=== PATIENT | female | born 1970 | race Two or more races ===

== ENCOUNTER → 2017-06-15 | Day surgery (SDC) | payer OTHER ==
[2017-06-15] VITALS (8 sets, daily range): BP systolic 116–148; BP diastolic 72–82
[~2017-06-15] VITALS: Ht 170.2 cm; Wt 136.1 kg
[~2017-06-15] MED LIST: AMLODIPINE BESY10 MG ORAL; Bupivacaine 0.25% Inj 30ml INJ ONE; CITALOPRAM HBR10 M1 ORAL; Clindamycin 600mg 50 ML IV ONE; D5 1/2NS 1,000 ML IV SCH; FLONASE ALLERG9.9 ML NS; FUROSEMIDE40 MG ORAL; HYDROmorphone 1mg/ml Carpuject SUBQ PRN; LORATADINE10 M1 PO; LR 1000ml ONE; NS Irrig 1000ml IRRIG ONE; Norco 5mg/325mg tab ORAL PRN; Propofol 10mg/ml 20ml IV ONE; RISPERDAL0.25 MG ORAL; Sterile Water Irrig 1000ml IRRIG ONE; Tylenol #3 tab (300mg/30mg) ORAL PRN; XANAX0.25 MG ORAL; celeBREX 200mg Cap **SURGERY PATIENTS ONLY ORAL ONE; fentaNYL 100 mcg/2 mL IV ONE; oxyCONTIN 20mg tab ORAL ONE
--- NOTE | 2017-06-15 07:16 | Pre-Procedure Note/Attestation ---
Pre-Procedure Note/Attestation Complete Prior to Procedure Planned Procedure: right Procedure Narrative: ct release Indications for Procedure Pre-Operative Diagnosis: right CTS Attestation I attest that I discussed the nature of the procedure; its benefits; risks and complications; and alternatives (and the risks and benefits of such alternatives ), prior to the procedure, with the patient (or the patient's legal freight representative). I attest that, if there was a reasonable possibility of needing a blood transfusion, the patient (or the patient's legal freight representative) was given the [facility] standardized written summary, pursuant to the [place] Blood Safety Act ([place] Health and Safety Code # 1645, as amended). I attest that I re-evaluated the patient just prior to the surgery and that there has been no change in the patient's H&P, except as documented below: ANATOLIY LOW Jun 15, 2017 07:16
--- NOTE | 2017-06-15 07:17 | Operative Note - PDOC ---
Operative Note Operative Note Pre-op Diagnosis: right CTS Procedure: right carpel tunnel release Post-op Diagnosis: same as pre-op plus Operative Findings: consistent w/pre-op dx studies Anesthesia: MAC Specimen: none Complications: none Condition: stable Estimated Blood Loss: none Implant(s) used?: ANATOLIY Santiago Jun 15, 2017 07:17
--- NOTE | 2017-06-15 11:10 | Immediate Post-Op Evaluation ---
Immediate Post-Op Evalulation Immediate Post-Op Evalulation Procedure: r CTR Date of Evaluation: Jun 15, 2017 Time of Evaluation: 11:10 Nausea: No Vomiting: No Given Within 1 Hr of Incision: Yes Zoya Banda MD Jun 15, 2017 11:10
--- NOTE | 2017-06-15 11:10 | Anethesia Preoperative Eval ---
Anesthesia Pre-op PMH/ROS General Date of Evaluation: Jun 15, 2017 Time of Evaluation: 10:00 ASA Score: ASA 2 Mallampati Score Class I : Soft palate, uvula, fauces, pillars visible Class II: Soft palate, uvula, fauces visible Class III: Soft palate, base of uvula visible Class IV: Only hard plate visible Mallampati Classification: Class II Allergies: Coded Allergies: LATEX (Verified Allergy, Intermediate, 06/14/17) SKIN RASH AND ITCHING PENICILLINS (Verified Allergy, Unknown, 06/14/17) Uncoded Allergies: ADHESIVE (Allergy, Severe, 06/14/17) SKIN IRRITATION AND BLISTERS Anesthesia Pre-op Phys. Exam Physician Exam Last Vital Signs Date Time Temp Pulse Resp B/P Pulse Ox O2 Delivery O2 Flow Rate FiO2 06/15/17 10:18 97.9 57 20 137/78 96 Room Air Anesthesia Pre-op A/P Labs Urine Test Test 06/15/17 09:10 Urine HCG, Qualitative Negative Zoya Banda MD Jun 15, 2017 11:10
--- NOTE | 2017-06-15 12:15 | 48 Hour Post Anesthesia Eval ---
Post Anesthesia Evaluation Procedure: r CTR Date of Evaluation: Jun 15, 2017 Time of Evaluation: 12:15 Nausea: No Vomiting: No Hydration Status: adequate Follow-up care needed: N/A Zoya Banda MD Jun 15, 2017 12:15
--- NOTE | 2017-06-15 22:16 | Operative Note - Dictated ---
DATE OF OPERATION: 06/15/2017 PREOPERATIVE DIAGNOSIS: Right traumatic carpal tunnel syndrome. POSTOPERATIVE DIAGNOSIS: Right traumatic carpal tunnel syndrome. PROCEDURES: Right carpal tunnel release. SURGEON: Aaron Guzmán M.D. ANESTHESIA: MAC. INDICATION FOR THE PROCEDURE: The patient pleasant 46-year-old female, progressive right hand numbness and tingling after an accident. She had carpal tunnel syndrome. After failing conservative treatment, she elected to undergo right carpal tunnel surgery release. Risks, limitations, expectations, and complications related to procedure were discussed in detail. All questions were addressed. DESCRIPTION OF PROCEDURE: After informed consent was obtained, the patient was brought to the operating room and placed under general anesthesia. Tourniquet was applied to the right proximal arm. Right arm was prepped and draped in a sterile manner. Time-out was performed. The transverse carpal tunnel incision was marked out. Esmarch was used to exsanguinate the extremity. The skin was incised, fascia was dissected down to the palmar fascia. The palmar fascia was incised until transverse carpal ligament was identified. Under direct visualization, the transverse carpal tunnel was incised. Once we entered the carpal tunnel using direct visualization with tenotomies scissors the transverse carpal ligament was released proximally and distally. Once that was done, the wound was copiously irrigated. Subcutaneous tissue was approximated with 4-0 nylon sutures. Compression dressing was applied. The patient was awoken and taken to the recovery room with stable vital signs. ESTIMATED BLOOD LOSS: Minimal. COMPLICATIONS: None. SPECIMENS: None. IMPLANTS: None. Aaron Guzmán M.D. DR: Leland JOB#: [id number] CC:
== END | disposition home or self-care (01) ==
LOC: SUR 09:01
DX: G56.01 Carpal tunnel syndrome, right upper limb (principal); I10 Essential (primary) hypertension; J31.0 Chronic rhinitis; Z88.0 Allergy status to penicillin; Z91.040 Latex allergy status
CPT/HCPCS: 64721; 81025; J0690; J2704; J3010; J3490; J7120; 94003; 94150